=== PATIENT | female | born 1985 ===

== ENCOUNTER 2019-09-30 12:27 | Inpatient (IN) | payer SELFPAY ==
[~2019-09-30] VITALS: Ht 170.2 cm; Wt 84.8 kg
[2019-09-30] MEDS ORDERED: Xanax1 MG PO (12:49)
[2019-09-30 13:06] LABS: BASOPHILS ABSOLUTE AUTO 0.05 K/mm3 (0.00-0.23); BASOPHILS PERCENT AUTO 1 % (0-2); EOSINOPHILS ABSOLUTE AUTO 0.03 K/mm3 (0.00-0.68); EOSINOPHILS PERCENT AUTO 1 % (0-6); Hematocrit 41.9 % (33.0-51.0); Hemoglobin 14.1 g/dL (11.5-16.0); IMMATURE GRAN ABSOLUTE AUTO 0.01 K/mm3 (0.00-0.10); IMMATURE GRAN PERCENT AUTO 0 % (0-1); LYMPHOCYTES ABSOLUTE AUTO 1.89 K/mm3 (0.84-5.20); LYMPHOCYTES PERCENT AUTO 28 % (21-46); MONOCYTES ABSOLUTE AUTO 0.61 K/mm3 (0.16-1.47); MONOCYTES PERCENT AUTO 9 % (4-13); Mean Corpuscular HGB 34.5 pg (26.0-34.0); Mean Corpuscular HGB Conc 33.7 g/dL (31.5-36.5); Mean Corpuscular Volume 102 fL (80-100); Mean Platelet Volume 11.1 fL (9.1-12.4); NEUTROPHILS ABSOLUTE AUTO 4.06 K/mm3 (1.96-9.15); NEUTROPHILS PERCENT AUTO 61 % (41-73); Platelet Count 270 K/mm3 (150-400); RDW Coefficient Variation 11.2 % (11.7-14.2); RDW Standard Deviation 42.6 fL (35.1-46.3); Red Blood Cell Count 4.09 M/mm3 (3.80-5.20); White Blood Cell Count 6.65 K/mm3 (4.00-11.30)
[2019-09-30 13:17] LABS: Alanine Aminotransfer (ALT/SGP 23 U/L (12-78); Albumin, Blood 3.6 g/dL (3.4-5.0); Albumin/Globulin Ratio 1.1 (0.8-1.8); Alk Phos 55 U/L (50-136); Anion Gap 4 mmol/L (6-16); Aspartate Aminotrans (AST/SGOT 20 U/L (12-37); Bilirubin, Total 0.3 mg/dL (0.1-1.0); Blood Urea Nitrogen 4 mg/dL (8-24); Bun/Creatinine Ratio 5.4 (12.0-20.0); CO2, Blood 29 mmol/L (21-32); Calcium, Blood 8.3 mg/dL (8.5-10.1); Chloride, Blood 109 mmol/L (98-108); Creatinine, Blood 0.75 mg/dL (0.40-1.00); Ethanol (Alcohol), Blood, Med 69 mg/dL; Globulin, Blood 3.3 g/dL (2.2-4.0); Glomerular Filtration Rate >60 (60-); Glucose, Blood 66 mg/dL (70-99); Potassium, Blood 4.1 mmol/L (3.5-5.5); Salicylate <1.7 mg/dL (2.8-20.0); Sodium, Blood 142 mmol/L (136-145); Total Protein, Blood 6.9 g/dL (6.4-8.2)
[2019-09-30 13:22] LABS: Acetaminophen, Random <2.0 ug/mL (10.0-30.0)
--- NOTE | 2019-09-30 16:27 | NUR ---
ADMIT TO ICU 2 AFTER REPORT FROM JERMAINE BARBOZA OF ER. PATIENT SAYS SHE DOES NOT WANT TO STAY. UNSTEADY. ASSISTED TO TOILET. URINE SPECIMAN OBTAINED. CONTINUES TO SAY SHE WANTS TO LEAVE.
--- NOTE | 2019-09-30 16:44 | NUR ---
PT DENIES SI, EVEN THOUGH SHE TOOK 10 XANAX
--- NOTE | 2019-09-30 17:20 | NUR ---
PATIENT HYPOTENSIVE. CONTACTED DR. FRITZ. LR BOLUS NOW AND REPEAT IF CONTINUES HYPOTENSIVE.
--- NOTE | 2019-09-30 17:29 | NUR ---
BIOX DROPPED WHILE SLEEPING. RT PLACED HER ON 3L NC
--- NOTE | 2019-09-30 18:14 | NUR ---
CBG CONTINUES LOW. SIPS OF APPLE JUICE GIVEN.
--- NOTE | 2019-09-30 18:16 | NUR ---
CIVIL RIGHTS READ TO PATIENT BY JERMAINE BRYSON
--- NOTE | 2019-09-30 19:12 | NUR ---
2ND BOLUS STARTED FOR HYPOTENSION. CONTINUES TO DENY SI. CONTINUES TO SAY SHE IS LEAVING. REPORT GIVEN TO JERMAINE GOFF
--- NOTE | 2019-09-30 20:20 | NUR ---
CARE ASSUMED CARE AND REPORT ASSUMED FROM PHIL DEAN. PT IN BED, AND IS RESTLESS. DROWSY WITH SLURRED SPEECH WHEN TALKING. A/O X PERSON, PLACE, AND EVENT. CONTINUALLY STATING SHE WANTS TO LEAVE. EXPLAINED TO PT THAT IF SHE ATTEMPTS TO LEAVE, THE POLICE WILL BE CALLED AND SHE WILL POSSIBLY TIED DOWN TO THE BED. PT TEARFUL. PULLED OUT HER PERIPHERAL IV AFTER SQURIMING AROUND IN BED. NEW PERIPHERAL IV INSERTED BY ULTRASOUND. LR INFUSING AT 125 ML/HR PER ORDER. BP WNL. NSR, HR 50-60S. WILL CONTINUE TO MONITOR.
--- NOTE | 2019-09-30 21:25 | NUR ---
REASSESSMENT PT AMBULATING INDEPENDENTLY AROUND ROOM. HAS PULLED OFF HER SPO2 MONITOR, IS PULLING AT HER IV, AND NOW WANDERING AROUND THE ROOM. PT NOT WANTING TO COMPLY AND IS THREATENING TO LEAVE. HAVE DISCUSSED MANY TIMES WITH PT THAT SHE IS NOT LEAVING TONIGHT AND NEEDS TO REMAIN IN THE ROOM SHE IS ON A 2 MD HOLD. COPY OF PTS RIGHTS WERE GIVEN TO HER TO READ AND SHE PROCEEDED TO TEAR IT UP. REMAINS ON CAMERA MONITORING. WILL CONTINUE TO MONITOR.
--- NOTE | 2019-09-30 23:17 | NUR ---
REASSESSMENT PT SLEEPING COMFORTABLY. VSS. REMAINS NSR, HR 60S. BP WNL. WILL CONTINUE TO MONITOR.
[2019-10-01 04:08] LABS: Alanine Aminotransfer (ALT/SGP 18 U/L (12-78); Albumin, Blood 2.9 g/dL (3.4-5.0); Alk Phos 47 U/L (50-136); Anion Gap 5 mmol/L (6-16); Aspartate Aminotrans (AST/SGOT 10 U/L (12-37); Bilirubin, Total 0.4 mg/dL (0.1-1.0); Blood Urea Nitrogen 7 mg/dL (8-24); Bun/Creatinine Ratio 9.8 (12.0-20.0); CO2, Blood 26 mmol/L (21-32); Chloride, Blood 112 mmol/L (98-108); Creatinine, Blood 0.72 mg/dL (0.40-1.00); Globulin, Blood 2.8 g/dL (2.2-4.0); Glomerular Filtration Rate >60 (60-); Glucose, Blood 84 mg/dL (70-99); Potassium, Blood 3.8 mmol/L (3.5-5.5); Sodium, Blood 143 mmol/L (136-145); Total Protein, Blood 5.7 g/dL (6.4-8.2)
--- NOTE | 2019-10-01 06:07 | NUR ---
SHIFT SUMMARY PT WAS RESTLESS AT START OF SHIFT AND THREATENING TO LEAVE. SHE FINALLY CALMED DOWN AND LAYED BACK IN BED AROUND 2200. SINCE THEN, SHE HAS BEEN SLEEPING BUT DOES AWAKEN TO STIMULATION. LR MIV INFUSING AT 125 ML/HR PER ORDER. REMAINS IN NSR. WILL GIVE BEDSIDE, HANDOFF REPORT TO DAY RN.
--- NOTE | 2019-10-01 07:01 | NUR ---
ASSUMED CARE REPORT FROM JERMAINE GOFF. PATIENT IS SLEEPING. LR 125/HR. WILL SCHEDULE TELEPSYCH WHEN AWAKE.
--- NOTE | 2019-10-01 07:53 | NUR ---
PATIENT WOKE UP WHEN ARM STRAIGHTENED FOR IVF INFUSION. ASKED WHERE SHE WAS, ASKED IF SHE WAS GOING TO BE RELEASED TODAY. TOLD IT WOULD BE UP TO THE
--- NOTE | 2019-10-01 08:05 | NUR ---
MD VISIT DR. FRITZ IN. PATIENT WILL BE RELEASED WHEN CLEARED BY PSYCH.
--- NOTE | 2019-10-01 08:13 | NUR ---
IV INFILTRATED. REMOVED WNL.
--- NOTE | 2019-10-01 08:44 | NUR ---
TELEPSYCH CONSULT INITIATED. WAITING FOR CALL BACK WITH APPT TIME AND DR. APLOMINO.
--- NOTE | 2019-10-01 10:32 | NUR ---
VERNON CORCORAN, UPDATED ON PLAN TO DISCHARGE TODAY IF SAFE PER PSYCH.
--- NOTE | 2019-10-01 11:40 | NUR ---
TELEPSYCH APPOINTMENT WILL BE RESCHEDULED BECAUSE ORIGINAL PRACTIONER WAS CONSULTED FOR AN EMERGENCY.
--- NOTE | 2019-10-01 13:43 | NUR ---
PATIENT REPEATING THAT SHE IS GOING TO LEAVE. INFORMED HER OF CONSEQUENCES OF HER LEAVING. CONTACTED CATRINA ANTOINE TO CHANGE STATUS TO MED, NO TELE. WAITING FOR DR. MONTERO TELEPSYCH NOW.
--- NOTE | 2019-10-01 14:21 | NUR ---
COMPUTER LOCKED UP. BORROWED COMPUTER.
--- NOTE | 2019-10-01 14:45 | NUR ---
GIRLFRIEND HAS NOTIFIED FAMILY AND FRIENDS AND THEY HAVE BEEN CALLING. FATHER-TEGAN [phone]
--- NOTE | 2019-10-01 15:14 | NUR ---
TELEPSYCH RESCHEDULED FOR 1899
--- NOTE | 2019-10-01 16:25 | NUR ---
PATIENT'S SISTER CALLED BACK AFTER TALKING TO PATIENT. SHE REPORTED THAT PATIENT TOLD HER THAT SHE DID TRY TO KILL HERSELF, SHE HAS A RIGHT TO KILL HERSELF AND INTENDS TO KILL HERSELF WHEN SHE IS RELEASED. DR. FRITZ NOTIFIED. HIGH RISK SUICIDE IMPLEMENTED.
--- NOTE | 2019-10-01 16:54 | NUR ---
PATIENT WILL BE MOVED TO ROOM 11 AFTER IT IS MADE SAFE.
--- NOTE | 2019-10-01 17:24 | NUR ---
REPORT GIVEN TO JERMAINE MEADE. PATIENT IS BEING MOVED TO ICU 11
--- NOTE | 2019-10-01 17:25 | NUR ---
ASSUMED CARE REPORT RECIEVED. PT TRANSFERED FROM ICU 2 TO ICU 11 VIA WHEELCHAIR. PT IS CALM AND COOPERATIVE AT THIS TIME. ROOM MITIGATION COMPLETE. 1:1 SITTER PRESENT AT DOORWAY. PT INFORMED OF PLAN OF CARE AND IS AGREEABLE AT THIS TIME. PT IN PAPER SCRUBS. PT AMBULATES IN ROOM INDEPENDENTLY. REMOTE MONITORING CAMERA ON. WILL CONTINUE TO MONITOR.
--- NOTE | 2019-10-01 17:25 | NUR ---
FATHER CALLED BECAUSE SISTER TOLD HIM WHAT PATIENT TOLD HER ON THE PHONE. INFORMED HIM WE WERE TAKING PRECAUTIONS TO KEEP HER SAFE.
--- NOTE | 2019-10-01 18:32 | NUR ---
TELE PSYCH TELE PSYCH IN PROGRESS AT THIS TIME. PT IS CALM AND COOPERATIVE AT THIS TIME.
--- NOTE | 2019-10-01 19:15 | NUR ---
ONE-ON-ONE SITTER PRESENT
--- NOTE | 2019-10-01 20:00 | NUR ---
ASSUMPTION OF CARE NOTE ASSUMED CARE OF PT @ 1915, PT LAYING IN BED, TELEPSYCH COMPLETED @ APPROX 1900, PT ANXIOUS FOR RESULTS AND RECOMENDATION OF TELEPSYCH PROVIDER, PT STS SHE WANTS TO LEAVE THE HOSPITAL. VERY CONCERNED ABOUT BEING ABANDONED IN [place] PT IS FROM [place]. REASSURED PT THAT WE COULD DISCUSS WITH OUR DISCHARGE PLANNING TEAM FOR SPECIAL ARRANGEMENTS THAT MIGHT BE NEEDED, PT FELT ANYTHING OTHER THAN HER DRIVING HER OWN VEHICLE BACK TO [place] WAS UNACCEPTABLE. PT VERY LABILE, GOES FROM CALM/COOPERATIVE TO RAISING VOICE WITH CONFRONTATIONAL BEHAVIOR. PT DENIES SI AT THIS TIME, STS THIS SITUATION IS BEING MISUNDERSTOOD AND THAT HER SISTER, JOSE, IS A LIAR. PROVIDED PHONE CALL WITH SUPERVISION TO PTS GIRLFRIEND, VERNON. PT BECAME VERY AGITATED DURING PHONE CALL GIRLFRIEND INFORMED PT THAT SHE WOULD BE DRIVING PTS CAR AND DOGS TO [place]. PT UPSET AND TEARFUL.
--- NOTE | 2019-10-01 20:15 | NUR ---
DR HUFF TO ROOM TO DISCUSS RECOMMENDATION FROM TELEPSYCH PROVIDER OF INPT PSYCH AND ATIVAN FOR ANXIEY. PT DISPLEASED WITH RECOMMENDATION, STS SHE WOULD PREFER OUTPATIENT THERAPY. PT REMAINS CALM BUT MILDLY ANXIOUS.
--- NOTE | 2019-10-01 20:30 | NUR ---
PHONE CALL FROM PTS GIRLFRIEND VERNON, CALL TRANSFERED TO PTS ROOM, THIS RN REMAINS IN ROOM DURING CALL. PT REMAINS CALM, DISCUSSES OPTIONS WITH GIRLFRIEND REGARDING DOG CARE, TRANSPORTATION, AND OBTAINING PERSONAL BELONGINGS WHILE PT IS IN HOSPITAL.
--- NOTE | 2019-10-01 21:00 | NUR ---
PT UP IN ROOM, CURSING AT STAFF FOR KEEPING HER IN THE HOSPITAL, STS SHE WOULD RATHER BE IN CUSTODIAL. ASKS FOR PERSONAL BELONGINGS/CLOTHES, INFORMED PT OF POLICY REQUIRING PT TO REMAIN IN PAPER SCRUBS FOR HER SAFETY. PT YELLS AT THIS RN "WHAT AM I GOING TO DO? STRANGLE MYSELF WITH MY SHIRT", RE-EDUCATED PT ON CONCERNS FOR PERSONAL SAFETY AT THIS TIME.
--- NOTE | 2019-10-01 21:45 | NUR ---
PT THREW FULL WATER CUP ACROSS ROOM, THIS RN TO ROOM TO CLEAN UP. PT CONTINUES TO REFUSE NURSING CARE. WILL NOT ALLOW THIS RN TO OBTAIN VITALS. REFUSES TO ANSWER QUESTIONS.
--- NOTE | 2019-10-01 23:21 | NUR ---
PT APPEARS TO BE SLEEPING IN BED, RESPIRATIONS EVEN AND UNLABORED.
--- NOTE | 2019-10-02 05:31 | NUR ---
SHIFT SUMMARY PT SLEPT WELL T/O NIGHT, REFUSED CARE/ASSESSMENTS WHILE AWAKE, LABILE MOOD AND BEHAVIOR (SEE PREVIOUS NOTES). PT AMBULATES IN ROOM WITHOUT ASSISTANCE, STEADY GAIT. REPOSITIONS SELF IN BED. ONE ON ONE SITTER REMAINS PRESENT T/O NIGHT.
--- NOTE | 2019-10-02 07:55 | NUR ---
ASSUMED CARE REPORT RECIEVED. PT IS AWAKE UPON ENTERING ROOM. PT IS AGREEABLE TO VITAL SIGNS AND ASSESSMENT. DR FRITZ IN ROOM TO SEE PT AT THIS TIME. PT IS TEARFUL AND EXPRESSES CONCERNS ABOUT BEING STRANDED HERE. PT DENIES SUICIDAL THOUGHTS AT THIS MOMENT. PT INFORMED THAT 2MD HOLD IS STILL IN PLACE AND SUICIDE PRECAUTIONS ARE IN PLACE. 1:1 BEDSIDE SITTER IS PRESENT AND REMOTE MONITORING CAMERAS IN PLACE. VITAL SIGNS STABLE. WILL CONTINUE TO MONITOR.
--- NOTE | 2019-10-02 09:42 | NUR ---
CALL FROM FAMILY PT BROTHER LANCE CALLED. UPDATED THAT PT'S DOGS ARE BEING BOARDED FOR 5 DAYS AND HER VAN WILL REMAIN HERE IN [place]. RELAYED UPDATE TO PT. PT IS CALM AND COOPERATIVE AT THIS TIME. PT LAYING IN BED. WILL CONTINUE TO MONITOR.
--- NOTE | 2019-10-02 14:10 | NUR ---
UPDATE TELE PSYCH REEVALUATION CANCELED. TELE PSYCH DR SPOKE WITH DR FRITZ DIRECTLY. PT UPDATED THAT INPATIENT PSYCH PLACEMENT IS THE RECCOMENDATION. DR FRITZ HAS NOT NOTIFIED PT OF PLAN OF CARE AT THIS TIME. PT IS ANGRY, BUT COOPERATIVE AT THIS TIME. DR FRITZ TO COME SPEAK TO PT. 1:1 SITTER REMAINS AT DOORWAY.
--- NOTE | 2019-10-02 18:06 | NUR ---
SHIFT SUMMARY SEE PREVIOUS SHIFT NOTES FOR MORE INFO. PT IS CALM AND COOPERATIVE AT THIS TIME. DR FRITZ CAME TO SEE PT THIS AFTERNOON AND UPDATE TO PLAN OF CARE. PT NEEDS FREQUENT DIRECTION RELATED TO LIMITATIONS WITH [address] PT ALLOWED LIMITED PHONE USE TO UPDATE FATHER TODAY. PT REMAINED CALM AND COOPERATIVE DURING PHONE CALLS. PT UP IN ROOM INDEPENDENTLY. PT REMAINS WITH 1:1 SITTER PRESENT AT DOORWAY AND REMOTE MONITORING CAMERA IN PLACE. WILL CONTINUE TO MONITOR AND REPORT OFF TO ONCOMING RN.
--- NOTE | 2019-10-02 22:32 | NUR ---
ASSUMED CARE OF PT, REPORT RCV'D FROM JERMAINE MEADE. PT ALERT AND ORIENTED, COOPERATIVE WITH CARE. PHONE TAKEN FROM PT'S ROOM PER 2-MD HOLD POLICY, EXPLAINED POLICY TO PATIENT, PT STATES UNDERSTANDING. PT DENIES SI AT THIS TIME. PT REPORTS THAT FOR THE LAST 3 YEARS SHE HAS WORKED IN [place] [employer] "[employer]". PT STATES SHE LIVES IN [place] BUT WORKS IN [place] FOR 9-MONTHS/YEAR. PT AND EX-GIRLFRIEND (VERNON) WENT ON SHORT TRIP WHEN VERNON TOLD PT THAT SHE "WANTED TO BREAKUP", PT IS UNDERSTANDABLY SAD SHE AND VERNON HAD BEEN BEST FRIENDS FOR 2-YEARS PRIOR TO THEIR 1-YEAR RELATIONSHIP. PER PT SHE DOES NOT RECALL HOW MANY XANAX SHE TOOK BUT KNOWS THAT SHE "DRANK LOTS OF WINE AND WHITE CLAW". SHE REMEMBERS BRIEFLY WAKING UP WHEN PARAMEDICS FOUND HER. PT REPORTS THAT HER EX DROVE HER VAN ALONG WITH HER DOGS BACK TO [place] TO A "FRIENDS HOUSE". PT WAS CONCERNED ABOUT THE WELFARE OF HER 5 DOGS, PT'S BROTHER AND A FRIEND ARRANGED FOR DOG BOARDING FOR 5 DAYS. SPOKE WITH PT ABOUT POSSIBILITY OF INPATIENT PSYCHIATRIC TREATMENT, PT DENIES SUICIDAL IDEATION AND STATES THAT SHE KNOWS SHE "F*CKED UP". PT STATES THAT SHE JUST WANTS TO "IMMERSE HERSELF IN WORK" OR BE "RELEASED TO FAMILY AND GO BACK TO [place]". PT REPORTS SIGNIFICANT SUPPORT FROM FRIENDS AND FAMILY IN [place] AND REPORTS SEVERAL OF THEM HAVE OFFERED TO FLY TO [place] TO ACCOMPANY HER HOME. PT UPDATED WITH PLAN FOR DR. PHAN TO EVALUATE TOMORROW AND MAKE RECOMMENDATION. PT ACKNOWLEDGES PLAN OF CARE. DOOR/CURTAIN OPEN, ROOM MITIGATED, PT ON 1-1 OBSERVATION (SITTER AT DOORWAY). SEE FULL SHIFT ASSESSMENT
--- NOTE | 2019-10-03 05:48 | NUR ---
NO ACUTE CHANGES OVERNIGHT. PT SLEPT WELL. GIVEN ONE DOSE OF ATIVAN. PT REMAINS ON 2-MD HOLD WITH 1:1 OBSERVATION. DOOR/CURTAIN REMAIN OPEN. VSS. WILL REPORT TO DAYSTXFT NURSE
--- NOTE | 2019-10-03 08:20 | NUR ---
ASSUMED CARE: REPORT RECEIVED FROM EL Alejadnro RN. ASSUMED CARE OF THIS PT AT APPROX 0700. ON ASSESSMENT, THE PT IS A&O, PLEASANT & COOPERATIVE. SHE DENIES SI AT THIS TIME & IS FRUSTRATED THAT HER TELEPSYCH CONSULT OCCURED WHILE SHE WAS STILL UNDER THE INFLUENCE OF THE XANAX THAT SHE TOOK. STATING SHE DOESN'T REMEMBER THE TELEPSYCH CONSULT AT ALL. LS CLEAR T/O, PT ON RA W/ O2 SATS > 92%. PT HAS NO GI/ COMPLAINTS & IS VOIDING W/O DIFFICULTY. SKIN OVERALL CDI. WILL CONTINUE TO MONITOR & UPDATE NEEDED.
--- NOTE | 2019-10-03 12:32 | NUR ---
UPDATE: DR PHAN HAS NOTIFIED THIS RN THAT SADIA LUNA NP, WILL BE SEEING THE PT TODAY IN HIS PLACE. SADIA REQUESTS THAT A FACESHEET FOR THE PT, ALONG W/ PRIOR TELEPSYCH REPORTS, BE FAXED TO HER OFFICE. SHE WILL BE COMPLETING THIS PT's CONSULTATION VIA TELEPSYCH COMPUTER & HAS GIVEN THIS RN INSTRUCTIONS REGARDING SETUP FOR THIS TO OCCUR. PLAN IS FOR CONSULTATION AT APPROX 1300.
--- NOTE | 2019-10-03 15:52 | NUR ---
DISCHARGE: DR HERNANDEZ IN UNIT TO SIGN HOLD RELEASE FORM. RELEASE FORM HAS BEEN SIGNED & D/C PAPERWORK COMPLETED. PT HAS NO PIV AT TIME OF D/C. EDUCATION DISCUSSED & PT PROVIDED W/ RESOURCES IF SUICIDAL IDEATION IS TO OCCUR AGAIN. PT AMBULATED OUT OF UNIT W/ CINDY MARQUEZ, AT 1545.
== END 2019-10-03 15:45 | disposition home or self-care (01) | DRG 918 ==
LOC: ER 12:27 → ICUE 12:28 → ICUW 12:28 → ICUE 16:02 → ICUW 10-01 16:58
PROVIDERS: Emergency Medicine; ADMIT Internal Medicine
DX: T42.4X2A Poisoning by benzodiazepines, intentional self-harm, initial encounter (principal); F32.9 Major depressive disorder, single episode, unspecified; F41.9 Anxiety disorder, unspecified; E16.2 Hypoglycemia, unspecified; F17.210 Nicotine dependence, cigarettes, uncomplicated; Z91.5 Personal history of self-harm
CPT/HCPCS: 36415; 51701; 80053; 81025; 82947; 85025; 93005; 93010; 96361; 96361-59; 96374-59; 99285-25; G0378; G0480; J7030; J7120